=== PATIENT | male | born 1955 | race Caucasian/White ===

== ENCOUNTER → 2016-09-19 | Outpatient (CLI) | payer OTHER ==
[~2016-09-19] MED LIST: AMLO10TA2 PO; AMLO5TAB2 PO; LEVO150T PO; LEVO300T2 PO; LINE600T37 PO; MULT-658 PO; OMEG1CAP34 PO; TAMS-11 PO
== END | disposition home or self-care (01) ==
LOC: STAR 08:36
PROVIDERS: ATTEND Urology
DX: Z01.818 Encounter for other preprocedural examination (principal); N40.1 Benign prostatic hyperplasia with lower urinary tract symptoms
CPT/HCPCS: 81003; 87086; 93005

== ENCOUNTER 2016-09-25 09:16 | Inpatient (IN) | payer OTHER ==
[~2016-09-25] VITALS: Ht 180.3 cm; Wt 108.6 kg
[2016-09-25] MEDS ORDERED: LACTATED RINGERS 1,000 ML IV SCH (09:41)
[2016-09-25 10:01] VITALS: BP 121/85
[2016-09-25] MEDS ORDERED: MIDAZOLAM 1 MG/ML, 2ML ONE (10:04)
[2016-09-25] MEDS ORDERED: FENTANYL PF 250 MCG/5ML ONE (10:05)
[2016-09-25] MEDS ORDERED: PROPOFOL 10 MG/ML, 20ML ONE (10:59)
[2016-09-25] MEDS ORDERED: DEXAMETHASONE 4 MG/ML, 1ML ONE (10:59)
[2016-09-25] MEDS ORDERED: CEFAZOLIN 1,000 MG ONE (10:59)
[2016-09-25] MEDS ORDERED: ROCURONIUM 10 MG/ML ONE (10:59)
[2016-09-25] MEDS ORDERED: SUCCINYLCHOLINE 20 MG/ML, 10ML ONE (10:59)
[2016-09-25] MEDS ORDERED: ONDANSETRON 2MG/ML, 2ML ONE (10:59)
[2016-09-25 11:33] LABS: BLOOD UREA NITROGEN 18 mg/dL (7-18)
[2016-09-25] MEDS ORDERED: ONDANSETRON 2MG/ML, 2ML IVPush PRN (12:00)
[2016-09-25] MEDS ORDERED: OXYcodone 5 MG/5 ML ORAL.SOL UDC PO PRN (12:00)
[2016-09-25] MEDS ORDERED: ACETAMINOPHEN 325 MG TABLET PO PRN (12:00)
[2016-09-25] MEDS ORDERED: FENTANYL PF 100 MCG/2ML IV PRN (12:00)
[2016-09-25] MEDS ORDERED: LABETALOL 5MG/ML, 20ML IV PRN (12:00)
[2016-09-25] MEDS ORDERED: METOCLOPRAMIDE 5 MG/ML, 2ML IV PRN (12:00)
[2016-09-25] MEDS ORDERED: hydrALAzine 20 MG/ML, 1ML IV PRN (12:00)
[2016-09-25] MEDS ORDERED: HYDROmorphone 1 MG/ML, 1ML IV PRN (12:00)
[2016-09-25] MEDS ORDERED: OPIUM/BELLADONNA SUPP.RECT 16.2-60 MG PR PRN (14:00)
[2016-09-25] MEDS ORDERED: OXYcodone/APAP 5/325MG TABLET PO PRN (14:00)
[2016-09-25] MEDS ORDERED: ONDANSETRON 2MG/ML, 2ML IV PRN (14:00)
[2016-09-25] MEDS: D5%-LACTATED RINGERS 1,000 ML IV SCH ×2 (14:11→22:16)
[2016-09-25 14:18] VITALS: BP 134/88
[2016-09-25 18:59] VITALS: BP 127/82
[2016-09-25 23:23] VITALS: BP 112/64
[2016-09-26 03:47] VITALS: BP 130/70
[2016-09-26] MEDS: D5%-LACTATED RINGERS 1,000 ML IV SCH (03:49)
[2016-09-26] MEDS ORDERED: LEVOTHYROXINE 150 MCG TABLET PO SCH (06:00)
[2016-09-26 07:34] VITALS: BP 123/74
[2016-09-26] MEDS ORDERED: AMLODIPINE 5 MG TABLET PO SCH (09:00)
[2016-09-26] MEDS ORDERED: MULTIVITAMIN 1 TABLET PO SCH (09:00)
[2016-09-26 10:07] VITALS: BP 130/83
== END 2016-09-26 10:15 | disposition home or self-care (01) | DRG 713 ==
LOC: OUT 09:16 → 4NOR 13:37 → OUT 13:43
PROVIDERS: ADMIT Urology; ATTEND Urology
PROC: 0VT08ZZ Resection of Prostate, Via Natural or Artificial Opening Endoscopic (ICD-10-PCS; principal; 2016-09-25 11:00)
DX: N40.1 Benign prostatic hyperplasia with lower urinary tract symptoms (principal); N13.8 Other obstructive and reflux uropathy; I10 Essential (primary) hypertension; R33.9 Retention of urine, unspecified; E03.9 Hypothyroidism, unspecified; G47.33 Obstructive sleep apnea (adult) (pediatric); I05.9 Rheumatic mitral valve disease, unspecified; Z87.442 Personal history of urinary calculi; Z87.81 Personal history of (healed) traumatic fracture
CPT/HCPCS: 36415; 80048; 88305; J0690; J1100; J2250; J2405; J2704; J3010; J0330; J7120; J7121

== ENCOUNTER 2018-02-12 12:42 | Emergency (ER) | payer OTHER ==
[~2018-02-12] VITALS: Ht 182.9 cm; Wt 95.0 kg
[~2018-02-12 12:42] MED LIST changes: -AMLO10TA2 PO; +AMLO10TA6 PO; -AMLO5TAB2 PO; +AMLO5TAB7 PO
[2018-02-12] MEDS ORDERED: SODIUM CHLORIDE FLUSH 10ML SYR IVF ONE (13:00)
[2018-02-12] MEDS ORDERED: SODIUM CHLORIDE 0.9% 1,000ML IVBOLUS ONE (13:00)
[2018-02-12] MEDS ORDERED: PLEASE ENTER HEIGHT AND WEIGHT MC SCH (13:00)
[2018-02-12 13:02] VITALS: BP 137/86
[2018-02-12 13:19] LABS: BASOPHILS % (AUTO) 1 % (0-1); EOSINOPHILS # (AUTO) 0.14 x10^3/uL (0-0.4); EOSINOPHILS % (AUTO) 1 % (1-7); LYMPHOCYTES # (AUTO) 1.68 x10^3/uL (1-3.4); LYMPHOCYTES % (AUTO) 16 % (22-44); MD NO; MEAN CORPUSCULAR HEMOGLOBIN 29.5 pg (27.5-34.5); MEAN CORPUSCULAR HGB CONC 33.5 g/dL (33.2-36.2); MEAN PLATELET VOLUME 7.9 fL (7.4-10.4); MONOCYTES # (AUTO) 0.82 x10^3/uL (0.2-0.8); MONOCYTES % (AUTO) 8 % (2-9); NEUTROPHILS # (AUTO) 7.82 x10^3/uL (1.8-6.8); NEUTROPHILS % (AUTO) 74 % (42-75); PLATELET COUNT 240 x10^3/uL (130-400); RED BLOOD COUNT 6.33 x10^6/uL (4.38-5.82); RED CELL DISTRIBUTION WIDTH 15.9 % (9.4-14.8)
[2018-02-12 13:28] LABS: ALANINE AMINOTRANSFERASE 27 U/L (12-78); ALBUMIN 4.2 g/dL (3.4-5.0); ANION GAP 10 mmol/L (5-15); CALCIUM 8.9 mg/dL (8.5-10.1); CHLORIDE 108 mmol/L (98-107); CREATININE 1.24 mg/dL (0.7-1.3)
[2018-02-12 13:30] LABS: ALKALINE PHOSPHATASE 46 U/L (45-117); BILIRUBIN,TOTAL 0.6 mg/dL (0.2-1.0); TOTAL PROTEIN 7.8 g/dL (6.4-8.2)
[2018-02-12 13:36] LABS: MICROSCOPIC INDICATED
[2018-02-12 14:00] LABS: CULTURE INDICATED? NO
[2018-02-12] MEDS ORDERED: TAMSULOSIN 0.4 MG CAP.ER.24H ONE (14:00)
[2018-02-12] MEDS ORDERED: KETOROLAC 30 MG/1 ML IVPush ONE (14:00)
[2018-02-12] MEDS ORDERED: KETOROLAC 30 MG/1 ML ONE (14:00)
[2018-02-12] MEDS ORDERED: TAMSULOSIN 0.4 MG CAP.ER.24H PO ONE (14:00)
[2018-02-12] MEDS ORDERED: PLEASE ENTER ALLERGIES MC SCH (14:30)
== END 2018-02-12 14:14 | disposition home or self-care (01) ==
LOC: ED 14:08
DX: N23 Unspecified renal colic (principal); N20.0 Calculus of kidney; D75.1 Secondary polycythemia; I10 Essential (primary) hypertension
CPT/HCPCS: 36415; 74176; 80053; 81001; 85025; 96374; 99285; J1885; J7030

== ENCOUNTER → 2019-04-28 | Outpatient (CLI) | payer OTHER ==
[~2019-04-28] MED LIST changes: +AMLO-150 PO; -AMLO10TA6 PO; +AMLO10TA8 PO; -AMLO5TAB7 PO; +LINE600T12 PO; -LINE600T37 PO
== END | disposition home or self-care (01) ==
LOC: CFH 08:41
PROVIDERS: ATTEND Internal Medicine Cardiovascular Disease
DX: I08.2 Rheumatic disorders of both aortic and tricuspid valves (principal)
CPT/HCPCS: 93306

== ENCOUNTER 2020-01-04 06:10 | Emergency (ER) | payer OTHER ==
[~2020-01-04] VITALS: Ht 180.3 cm; Wt 107.0 kg
[2020-01-04] MEDS ORDERED: KETOROLAC 30 MG/1 ML ONE (06:35)
[2020-01-04] MEDS ORDERED: ONDANSETRON 2MG/ML, 2ML ONE (06:35)
[2020-01-04 06:55] LABS: BASOPHILS # (AUTO) 0.03 x10^3/uL (0-0.1); BASOPHILS % (AUTO) 1 % (0-1); EOSINOPHILS % (AUTO) 0 % (1-7); LYMPHOCYTES # (AUTO) 0.92 x10^3/uL (1-3.4); LYMPHOCYTES % (AUTO) 17 % (22-44); MD NO; MEAN CORPUSCULAR HEMOGLOBIN 27.9 pg (27.5-34.5); MEAN CORPUSCULAR HGB CONC 32.8 g/dL (33.2-36.2); MEAN CORPUSCULAR VOLUME 84.9 fL (81-97); MEAN PLATELET VOLUME 8.2 fL (7.4-10.4); MONOCYTES # (AUTO) 0.44 x10^3/uL (0.2-0.8); MONOCYTES % (AUTO) 8 % (2-9); NEUTROPHILS # (AUTO) 3.94 x10^3/uL (1.8-6.8); NEUTROPHILS % (AUTO) 74 % (42-75); PLATELET COUNT 174 x10^3/uL (130-400); RED BLOOD COUNT 6.52 x10^6/uL (4.38-5.82); RED CELL DISTRIBUTION WIDTH 17.4 % (9.4-14.8)
[2020-01-04] MEDS ORDERED: SODIUM CHLORIDE 0.9% 1,000ML IV ONE (07:00)
[2020-01-04] MEDS ORDERED: ONDANSETRON 2MG/ML, 2ML IVPush ONE (07:00)
[2020-01-04] MEDS ORDERED: KETOROLAC 30 MG/1 ML IVPush ONE (07:00)
[2020-01-04] MEDS ORDERED: SODIUM CHLORIDE FLUSH 10ML SYR IVF ONE (07:00)
--- NOTE | 2020-01-04 07:00 | NUR ---
RECEIVED REPORT FROM JO-ANN. PT LAYING ON GURNEY AWAKE & CALM, NAD, PT RESPONDS APPROP TO STAFF, NO NEEDS AT THIS TIME, CALL LIGHT WITHIN REACH. US AT BS.
[2020-01-04 07:05] LABS: ALANINE AMINOTRANSFERASE 33 U/L (12-78); ALBUMIN 3.6 g/dL (3.4-5.0); ANION GAP 8 mmol/L (5-15); CHLORIDE 102 mmol/L (98-107); CREATININE 1.54 mg/dL (0.7-1.3)
[2020-01-04 07:07] LABS: ALKALINE PHOSPHATASE 41 U/L (45-117); BILIRUBIN,TOTAL 0.6 mg/dL (0.2-1.0); TOTAL PROTEIN 7.6 g/dL (6.4-8.2)
[2020-01-04 07:23] LABS: MICROSCOPIC AUTO
--- NOTE | 2020-01-04 07:48 | NUR ---
PT LAYING ON GURNEY WITH EYES CLOSED, ABLE TO DOZE OFF, RESPONDS APPROP TO STAFF, NAD & REPORTS PAIN IS MUCH BETTER AFTER TORADOL, NO NEEDS AT THIS TIME, AT BS, CALL LIGHT WITHIN REACH
[2020-01-04 08:59] VITALS: BP 109/65
--- NOTE | 2020-01-04 08:59 | NUR ---
PT CONTINUES LAYING ON GURNEY AWAKE & COMFORTABLE, RESPONDS APPROP TO STAFF, NAD, NO NEEDS AT THIS TIME, AT BS, CALL LIGHT WITHIN REACH
--- NOTE | 2020-01-04 09:29 | NUR ---
Patient given discharge instructions and Rx, they have confirmed that they understand the instructions. Patient ambulatory with steady gait.
== END 2020-01-04 09:31 | disposition home or self-care (01) ==
LOC: ED 09:10
DX: U07.1 COVID-19 (principal); R50.9 Fever, unspecified; R10.9 Unspecified abdominal pain; R07.89 Other chest pain; R05 Cough; I10 Essential (primary) hypertension; Z86.39 Personal history of other endocrine, nutritional and metabolic disease
CPT/HCPCS: 36415; 71045; 76770; 80053; 81001; 83690; 85025; 87635; 96361; 96374; 96375; 99285; J1885; J2405; J7030

== ENCOUNTER 2020-01-08 07:31 | Inpatient (IN) | payer OTHER ==
[~2020-01-08] VITALS: Ht 180.3 cm; Wt 98.3 kg
--- NOTE | 2020-01-08 08:08 | NUR ---
BIB EMS FOR SOB, PT HAS KNOWN COVID TESTED ON [place], WORSE LAST NIGHT ON 2 L NC LAST NIGHT. 80% ON ROOM AIR. BS 84 TEMP 102.1. PT RR LABORED AT 45 TIMES A MIN. 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 WENT OVER PLAN OF CARE FROM ORDER LIST, AGREES TO PLAN.
--- NOTE | 2020-01-08 08:32 | NUR ---
LAB IN ROOM
[2020-01-08 09:03] LABS: MEAN CORPUSCULAR HEMOGLOBIN 27.7 pg (27.5-34.5); MEAN CORPUSCULAR HGB CONC 32.7 g/dL (33.2-36.2); MEAN CORPUSCULAR VOLUME 84.7 fL (81-97); PLATELET COUNT 208 x10^3/uL (130-400); RED BLOOD COUNT 6.21 x10^6/uL (4.38-5.82); RED CELL DISTRIBUTION WIDTH 17.5 % (9.4-14.8)
[2020-01-08] MEDS ORDERED: DEXAMETHASONE 4 MG/ML, 1ML ONE (09:10)
[2020-01-08] MEDS ORDERED: KETOROLAC 30 MG/1 ML ONE (09:10)
[2020-01-08 09:12] LABS: ALANINE AMINOTRANSFERASE 45 U/L (12-78); ALBUMIN 2.8 g/dL (3.4-5.0); ANION GAP 10 mmol/L (5-15); CALCIUM 7.6 mg/dL (8.5-10.1); CHLORIDE 103 mmol/L (98-107); CREATININE 1.41 mg/dL (0.7-1.3)
[2020-01-08 09:19] LABS: ALKALINE PHOSPHATASE 35 U/L (45-117); BILIRUBIN,TOTAL 0.6 mg/dL (0.2-1.0)
[2020-01-08] MEDS ORDERED: DEXAMETHASONE 4 MG/ML, 1ML IVPush ONE (09:30)
[2020-01-08] MEDS ORDERED: KETOROLAC 30 MG/1 ML IVPush ONE (09:30)
--- NOTE | 2020-01-08 09:30 | NUR ---
PT ON HIS ABD, FEELING BETTER AT THIS TIME.
[2020-01-08 09:32] LABS: BASOPHILS # (AUTO) 0.01 x10^3/uL (0-0.1); BASOPHILS % (AUTO) 0 % (0-1); EOSINOPHILS % (AUTO) 0 % (1-7); LYMPHOCYTES # (AUTO) 0.45 x10^3/uL (1-3.4); LYMPHOCYTES % (AUTO) 7 % (22-44); MD SCAN; MONOCYTES # (AUTO) 0.38 x10^3/uL (0.2-0.8); MONOCYTES % (AUTO) 6 % (2-9); NEUTROPHILS # (AUTO) 5.86 x10^3/uL (1.8-6.8); NEUTROPHILS % (AUTO) 87 % (42-75)
--- NOTE | 2020-01-08 09:50 | NUR ---
DONATO HINES MD AT BEDSIDE
[2020-01-08] MEDS ORDERED: PHARMACY INSTRUCTION MC PRN (10:30)
[2020-01-08] MEDS ORDERED: ONDANSETRON 2MG/ML, 2ML IVPush PRN (11:00)
[2020-01-08] MEDS ORDERED: PROMETHAZINE 25 MG/ML, 1ML IM PRN (11:00)
[2020-01-08] MEDS ORDERED: OXYcodone IR 5MG TABLET PO PRN (11:00)
[2020-01-08] MEDS ORDERED: ENALAPRILAT 1.25 MG/ML, 2ML IVPush PRN (11:00)
[2020-01-08] MEDS ORDERED: CEFTRIAXONE PMX 1GM/50ML 50 ML ONE (11:06)
[2020-01-08] MEDS: AZITHROMYCIN 500 MG in SODIUM CHLORIDE 0.9% 250 ML IV SCH (11:15)
[2020-01-08] MEDS: CEFTRIAXONE PMX 1GM/50ML 50 ML IV SCH (11:15)
[2020-01-08 11:16] LABS: D-DIMER 0.49 ug/mlFEU (0.00-0.52); INTERNATIONAL NORMALIZED RATIO 1.12 (0.93-1.1); PROTHROMBIN TIME 11.5 Seconds (9.6-11.5)
[2020-01-08 11:17] LABS: TROPONIN I 0.019 ng/mL (0.000-0.045)
[2020-01-08] MEDS ORDERED: SODIUM CHLORIDE 0.9%, 500ML IVBOLUS ONE (11:30)
[2020-01-08] MEDS ORDERED: ENOXAPARIN 150 MG/ML SQ SCH (12:00)
[2020-01-08] MEDS ORDERED: REMDESIVIR 200 MG in SODIUM CHLORIDE 0.9% 250 ML IVPB ONE (12:30)
[2020-01-08] MEDS: THIAMINE 100MG TABLET PO SCH (12:40)
[2020-01-08] MEDS: ASCORBIC ACID 500 MG TABLET PO SCH ×2 (12:41→17:11)
[2020-01-08] MEDS: CHOLECALCIFEROL 5,000u TAB PO SCH (12:41)
[2020-01-08] MEDS: ZINC SULFATE 220 MG CAPSULE PO SCH (12:41)
[2020-01-08 17:08] LABS: TROPONIN I < 0.015 ng/mL (0.000-0.045)
[2020-01-08] MEDS: AMLODIPINE 5 MG TABLET PO SCH (20:21)
[2020-01-08] MEDS: MELATONIN 5 MG TABLET PO PRN (21:51)
[2020-01-09 04:00] VITALS: BP 122/71
[2020-01-09 04:42] LABS: BASOPHILS # (AUTO) 0.01 x10^3/uL (0-0.1); BASOPHILS % (AUTO) 0 % (0-1); EOSINOPHILS % (AUTO) 0 % (1-7); LYMPHOCYTES # (AUTO) 0.68 x10^3/uL (1-3.4); LYMPHOCYTES % (AUTO) 10 % (22-44); MD NO; MEAN CORPUSCULAR HEMOGLOBIN 27.6 pg (27.5-34.5); MEAN CORPUSCULAR HGB CONC 32.3 g/dL (33.2-36.2); MEAN CORPUSCULAR VOLUME 85.5 fL (81-97); MEAN PLATELET VOLUME 8.3 fL (7.4-10.4); MONOCYTES # (AUTO) 0.49 x10^3/uL (0.2-0.8); MONOCYTES % (AUTO) 7 % (2-9); NEUTROPHILS % (AUTO) 84 % (42-75); PLATELET COUNT 244 x10^3/uL (130-400); RED BLOOD COUNT 6.09 x10^6/uL (4.38-5.82); RED CELL DISTRIBUTION WIDTH 17.2 % (9.4-14.8)
[2020-01-09 04:57] LABS: ALBUMIN 2.5 g/dL (3.4-5.0); ANION GAP 11 mmol/L (5-15); CALCIUM 8.1 mg/dL (8.5-10.1); CHLORIDE 103 mmol/L (98-107)
[2020-01-09 05:00] LABS: ALANINE AMINOTRANSFERASE 47 U/L (12-78); ALKALINE PHOSPHATASE 33 U/L (45-117); BILIRUBIN,TOTAL 0.5 mg/dL (0.2-1.0); CREATININE 1.15 mg/dL (0.7-1.3); TOTAL PROTEIN 6.7 g/dL (6.4-8.2)
[2020-01-09] MEDS: LEVOTHYROXINE 100 MCG TABLET PO SCH (06:03)
[2020-01-09] MEDS: ZINC SULFATE 220 MG CAPSULE PO SCH (09:25)
[2020-01-09] MEDS: AMLODIPINE 5 MG TABLET PO SCH ×2 (09:25→20:06)
[2020-01-09] MEDS: THIAMINE 100MG TABLET PO SCH (09:25)
[2020-01-09] MEDS: ASCORBIC ACID 500 MG TABLET PO SCH ×3 (09:25→17:04)
[2020-01-09] MEDS: CHOLECALCIFEROL 5,000u TAB PO SCH (09:25)
[2020-01-09] MEDS: DEXAMETHASONE 4 MG TABLET PO SCH (09:48)
[2020-01-09] MEDS: AZITHROMYCIN 500 MG in SODIUM CHLORIDE 0.9% 250 ML IV SCH (10:41)
[2020-01-09] MEDS: CEFTRIAXONE PMX 1GM/50ML 50 ML IV SCH (10:41)
[2020-01-09] MEDS: ENOXAPARIN 100 MG/ML SQ SCH ×2 (12:59→23:05)
[2020-01-09] MEDS: REMDESIVIR 100 MG in SODIUM CHLORIDE 0.9% 250 ML IVPB SCH (13:00)
[2020-01-09] MEDS: FUROSEMIDE 40 MG/4 ML IV SCH (17:04)
[2020-01-10 04:00] VITALS: BP 125/84
[2020-01-10 05:08] LABS: ALBUMIN 2.7 g/dL (3.4-5.0); ANION GAP 11 mmol/L (5-15); CALCIUM 8.5 mg/dL (8.5-10.1); CHLORIDE 104 mmol/L (98-107)
[2020-01-10 05:12] LABS: ALANINE AMINOTRANSFERASE 51 U/L (12-78); ALKALINE PHOSPHATASE 39 U/L (45-117); BILIRUBIN,TOTAL 0.6 mg/dL (0.2-1.0); CREATININE 1.14 mg/dL (0.7-1.3)
[2020-01-10] MEDS: LEVOTHYROXINE 100 MCG TABLET PO SCH (06:20)
[2020-01-10] MEDS: FUROSEMIDE 40 MG/4 ML IV SCH ×2 (06:20→17:08)
[2020-01-10] MEDS: ZINC SULFATE 220 MG CAPSULE PO SCH (08:08)
[2020-01-10] MEDS: AMLODIPINE 5 MG TABLET PO SCH ×3 (08:08→21:00)
[2020-01-10] MEDS: THIAMINE 100MG TABLET PO SCH (08:09)
[2020-01-10] MEDS: CHOLECALCIFEROL 5,000u TAB PO SCH (08:09)
[2020-01-10] MEDS: DEXAMETHASONE 4 MG TABLET PO SCH (08:09)
[2020-01-10] MEDS: ASCORBIC ACID 500 MG TABLET PO SCH ×3 (08:09→17:09)
[2020-01-10] MEDS: CEFTRIAXONE PMX 1GM/50ML 50 ML IV SCH (11:11)
[2020-01-10] MEDS: AZITHROMYCIN 500 MG in SODIUM CHLORIDE 0.9% 250 ML IV SCH (11:49)
[2020-01-10] MEDS: REMDESIVIR 100 MG in SODIUM CHLORIDE 0.9% 250 ML IVPB SCH (13:00)
[2020-01-10] MEDS: ENOXAPARIN 100 MG/ML SQ SCH ×2 (13:07→23:25)
[2020-01-10 16:21] LABS: D-DIMER 0.41 ug/mlFEU (0.00-0.52); INTERNATIONAL NORMALIZED RATIO 1.14 (0.93-1.1); PROTHROMBIN TIME 11.8 Seconds (9.6-11.5)
[2020-01-10] MEDS: MELATONIN 5 MG TABLET PO PRN (22:09)
[2020-01-11 04:00] VITALS: BP 111/73
[2020-01-11] MEDS: LEVOTHYROXINE 100 MCG TABLET PO SCH (05:49)
[2020-01-11] MEDS: FUROSEMIDE 40 MG/4 ML IV SCH ×2 (05:51→16:36)
[2020-01-11] MEDS: CHOLECALCIFEROL 5,000u TAB PO SCH (08:17)
[2020-01-11] MEDS: THIAMINE 100MG TABLET PO SCH (08:17)
[2020-01-11] MEDS: ASCORBIC ACID 500 MG TABLET PO SCH ×3 (08:18→16:36)
[2020-01-11] MEDS: DEXAMETHASONE 4 MG TABLET PO SCH (08:18)
[2020-01-11] MEDS: AMLODIPINE 5 MG TABLET PO SCH ×2 (08:18→21:00)
[2020-01-11] MEDS: ZINC SULFATE 220 MG CAPSULE PO SCH (08:18)
[2020-01-11] MEDS: ENOXAPARIN 30 MG/0.3 ML SQ SCH ×2 (08:18→21:06)
[2020-01-11 09:48] LABS: ALANINE AMINOTRANSFERASE 71 U/L (12-78); ALBUMIN 2.9 g/dL (3.4-5.0); ANION GAP 9 mmol/L (5-15); CALCIUM 8.6 mg/dL (8.5-10.1); CHLORIDE 105 mmol/L (98-107); CREATININE 1.27 mg/dL (0.7-1.3)
[2020-01-11 09:50] LABS: ALKALINE PHOSPHATASE 45 U/L (45-117); BILIRUBIN,TOTAL 0.8 mg/dL (0.2-1.0); TOTAL PROTEIN 7.4 g/dL (6.4-8.2)
[2020-01-11] MEDS: REMDESIVIR 100 MG in SODIUM CHLORIDE 0.9% 250 ML IVPB SCH (12:57)
[2020-01-11] MEDS: MELATONIN 5 MG TABLET PO PRN (21:05)
[2020-01-12] MEDS: LEVOTHYROXINE 100 MCG TABLET PO SCH (05:52)
[2020-01-12] MEDS: FUROSEMIDE 40 MG/4 ML IV SCH ×2 (05:53→18:00)
[2020-01-12 06:00] VITALS: BP 120/77
[2020-01-12 06:28] LABS: CHLORIDE 104 mmol/L (98-107)
[2020-01-12 06:38] LABS: ALANINE AMINOTRANSFERASE 70 U/L (12-78); ALBUMIN 2.8 g/dL (3.4-5.0); ALKALINE PHOSPHATASE 41 U/L (45-117); ANION GAP 10 mmol/L (5-15); BILIRUBIN,TOTAL 0.8 mg/dL (0.2-1.0); CALCIUM 8.6 mg/dL (8.5-10.1); CREATININE 1.29 mg/dL (0.7-1.3)
[2020-01-12] MEDS: CHOLECALCIFEROL 5,000u TAB PO SCH (08:11)
[2020-01-12] MEDS: ASCORBIC ACID 500 MG TABLET PO SCH ×3 (08:11→16:39)
[2020-01-12] MEDS: ZINC SULFATE 220 MG CAPSULE PO SCH (08:11)
[2020-01-12] MEDS: THIAMINE 100MG TABLET PO SCH (08:11)
[2020-01-12] MEDS: DEXAMETHASONE 4 MG TABLET PO SCH (08:12)
[2020-01-12] MEDS: AMLODIPINE 5 MG TABLET PO SCH ×2 (08:13→21:40)
[2020-01-12] MEDS: ENOXAPARIN 30 MG/0.3 ML SQ SCH ×2 (08:14→21:40)
[2020-01-12] MEDS: REMDESIVIR 100 MG in SODIUM CHLORIDE 0.9% 250 ML IVPB SCH (12:45)
[2020-01-13 04:00] VITALS: BP 96/61
[2020-01-13 04:45] LABS: MEAN CORPUSCULAR HEMOGLOBIN 27.4 pg (27.5-34.5); MEAN CORPUSCULAR HGB CONC 32.1 g/dL (33.2-36.2); MEAN CORPUSCULAR VOLUME 85.3 fL (81-97); MEAN PLATELET VOLUME 7.6 fL (7.4-10.4); PLATELET COUNT 438 x10^3/uL (130-400); RED CELL DISTRIBUTION WIDTH 17.1 % (9.4-14.8)
[2020-01-13 04:46] LABS: ANION GAP 6 mmol/L (5-15); CALCIUM 8.1 mg/dL (8.5-10.1); CHLORIDE 102 mmol/L (98-107); CREATININE 1.44 mg/dL (0.7-1.3)
[2020-01-13 05:48] LABS: MD YES
[2020-01-13 05:53] LABS: LYMPH#(MANUAL) 1.37 x10^3/uL (1-3.4); LYMPHS% (MANUAL) 12 % (22-44); MONOS#(MANUAL) 1.03 x10^3/uL (0.3-2.7); MONOS% (MANUAL) 9 % (2-9); SEG#(MANUAL) 9.01 x10^3/uL (1.8-6.8); SEGS% (MANUAL) 79 % (42-75)
[2020-01-13 05:57] LABS: ANISOCYTOSIS 1+
[2020-01-13 05:58] LABS: <PLATELET ESTIMATE> INCREASED
[2020-01-13 06:00] LABS: <PLT MORPHOLOGY> NORMAL PLT MORPH
[2020-01-13] MEDS: LEVOTHYROXINE 100 MCG TABLET PO SCH (06:01)
[2020-01-13] MEDS: CHOLECALCIFEROL 5,000u TAB PO SCH (08:11)
[2020-01-13] MEDS: THIAMINE 100MG TABLET PO SCH (08:11)
[2020-01-13] MEDS: DEXAMETHASONE 4 MG TABLET PO SCH (08:12)
[2020-01-13] MEDS: ASCORBIC ACID 500 MG TABLET PO SCH ×3 (08:12→16:17)
[2020-01-13] MEDS: AMLODIPINE 5 MG TABLET PO SCH ×2 (08:12→20:29)
[2020-01-13] MEDS: ZINC SULFATE 220 MG CAPSULE PO SCH (08:12)
[2020-01-13] MEDS: ENOXAPARIN 30 MG/0.3 ML SQ SCH ×2 (08:13→20:28)
[2020-01-13 08:46] LABS: ALANINE AMINOTRANSFERASE 62 U/L (12-78); ALBUMIN 2.7 g/dL (3.4-5.0)
[2020-01-13 08:47] LABS: ALKALINE PHOSPHATASE 41 U/L (45-117); BILIRUBIN,TOTAL 0.7 mg/dL (0.2-1.0); TOTAL PROTEIN 6.7 g/dL (6.4-8.2)
[2020-01-13] MEDS: ACETAMINOPHEN 325 MG TABLET PO PRN (20:29)
[2020-01-14 04:00] VITALS: BP 103/61
[2020-01-14] MEDS: LEVOTHYROXINE 100 MCG TABLET PO SCH (06:22)
[2020-01-14] MEDS: ASCORBIC ACID 500 MG TABLET PO SCH ×3 (07:19→16:23)
[2020-01-14 08:00] VITALS: BP 104/82
[2020-01-14] MEDS: CHOLECALCIFEROL 5,000u TAB PO SCH (08:03)
[2020-01-14] MEDS: THIAMINE 100MG TABLET PO SCH (08:03)
[2020-01-14] MEDS: ENOXAPARIN 30 MG/0.3 ML SQ SCH ×2 (08:03→19:54)
[2020-01-14] MEDS: DEXAMETHASONE 4 MG TABLET PO SCH (08:03)
[2020-01-14] MEDS: AMLODIPINE 5 MG TABLET PO SCH ×2 (08:03→19:28)
[2020-01-14] MEDS: ZINC SULFATE 220 MG CAPSULE PO SCH (08:03)
[2020-01-14 10:00] VITALS: BP 108/75
[2020-01-14 14:00] VITALS: BP 111/72
[2020-01-14 18:15] VITALS: BP 107/71
[2020-01-15 01:03] VITALS: BP 138/92
[2020-01-15 01:14] VITALS: BP 105/67
[2020-01-15] MEDS: LEVOTHYROXINE 100 MCG TABLET PO SCH (06:13)
[2020-01-15] MEDS: ACETAMINOPHEN 325 MG TABLET PO PRN (06:13)
[2020-01-15 06:39] VITALS: BP 118/80
[2020-01-15] MEDS: AMLODIPINE 5 MG TABLET PO SCH (09:12)
[2020-01-15] MEDS: ASCORBIC ACID 500 MG TABLET PO SCH ×2 (09:12→12:01)
[2020-01-15] MEDS: CHOLECALCIFEROL 5,000u TAB PO SCH (09:12)
[2020-01-15] MEDS: DEXAMETHASONE 4 MG TABLET PO SCH (09:12)
[2020-01-15] MEDS: ZINC SULFATE 220 MG CAPSULE PO SCH (09:12)
[2020-01-15] MEDS: ENOXAPARIN 30 MG/0.3 ML SQ SCH (09:12)
[2020-01-15] MEDS: THIAMINE 100MG TABLET PO SCH (09:12)
[2020-01-15] MEDS ORDERED: PRED10TA PO (11:47)
[2020-01-15] MEDS ORDERED: ZINC220C7 PO (11:47)
[2020-01-15] MEDS ORDERED: THIA100T67 PO (11:47)
[2020-01-15] MEDS ORDERED: CHOL500045 PO (11:47)
[2020-01-15] MEDS ORDERED: PRED50TA PO (11:47)
[2020-01-15] MEDS ORDERED: ASCO1500 PO (11:47)
[2020-01-15] MEDS ORDERED: PRED20TA PO (11:47)
[2020-01-15] MEDS ORDERED: methylPREDNISolone SOD SUCC 40 MG/ML IV ONE (12:00)
[2020-01-15 13:18] VITALS: BP 107/66
[2020-01-15] MEDS ORDERED: BUDE0.5A INH (15:19)
== END 2020-01-15 16:32 | disposition home or self-care (01) | DRG 871 ==
LOC: ED 09:30 → EDIP 09:41 → ICU 11:48 → 4EST 01-14 18:12
PROVIDERS: ADMIT Internal Medicine; ATTEND Hospitalist
PROC: XW033E5 Introduction of Remdesivir Anti-infective into Peripheral Vein, Percutaneous Approach, New Technology Group 5 (ICD-10-PCS; principal; 2020-01-09)
DX: A41.89 Other specified sepsis (principal); J12.89 Other viral pneumonia; J96.01 Acute respiratory failure with hypoxia; N17.0 Acute kidney failure with tubular necrosis; U07.1 COVID-19; E87.1 Hypo-osmolality and hyponatremia; E87.3 Alkalosis; E03.9 Hypothyroidism, unspecified; E66.9 Obesity, unspecified; E88.09 Other disorders of plasma-protein metabolism, not elsewhere classified; G47.33 Obstructive sleep apnea (adult) (pediatric); Z79.890 Hormone replacement therapy; Z87.442 Personal history of urinary calculi; Z95.2 Presence of prosthetic heart valve; I11.9 Hypertensive heart disease without heart failure
CPT/HCPCS: 36415; 36600; 71045; 80053; 82728; 82803; 83605; 83615; 83880; 84145; 84484; 85025; 85379; 85384; 85610; 85730; 86140; 87040; 87081; 87635; 93005; 93306; 94660; 96374; 96375; 99291; G0378; J0456; J0696; J1100; J1650; J1885; J1940; J2920; J7040; J7050